=== PATIENT | male | born 1995 | race Caucasian/White ===

== ENCOUNTER 2021-08-23 12:22 | Emergency (ER) | payer MEDICAID ==
[~2021-08-23] VITALS: Ht 160 cm; Wt 78.0 kg
[2021-08-23] MEDS ORDERED: LIDOCAINE HCL/EPINEPHRINE 1%-EPI 1:100,000 20 ML VIAL INFIL ONE (12:45)
[2021-08-23] MEDS ORDERED: TETANUS, DIPHTHERIA, PERTUSSIS VAC/PF 0.5ML (>10YR OLD) IM ONE (12:45)
[2021-08-23] MEDS ORDERED: BACITRACIN ZINC OINT UDPKT TOP ONE (12:45)
[2021-08-23] MEDS ORDERED: HYDROCODONE/ACETAMINOPHEN 5/325MG TABLET PO ONE (13:30)
[2021-08-23] MEDS ORDERED: CEPH500C2 MT (15:10)
[2021-08-23] MEDS ORDERED: BO1 TP (15:10)
[2021-08-23] MEDS ORDERED: IBUP-2029 MT (15:10)
[2021-08-23 15:46] VITALS: BP 125/72
== END 2021-08-23 15:48 | disposition home or self-care (01) ==
LOC: ER 13:08
DX: S71.111A Laceration without foreign body, right thigh, initial encounter (principal); W27.0XXA Contact with workbench tool, initial encounter; Y93.89 Activity, other specified; Y92.89 Other specified places as the place of occurrence of the external cause; Y99.8 Other external cause status
CPT/HCPCS: 12005; 73552; 90471; 90715; 99283; J3490

== ENCOUNTER 2021-09-05 13:33 | Emergency (ER) | payer MEDICAID ==
[~2021-09-05] VITALS: Ht 152.4 cm; Wt 65.0 kg
[~2021-09-05 13:33] MED LIST: BO1 TP; CEPH500C2 MT; IBUP-2029 MT
[2021-09-05 13:40] VITALS: BP 121/80
== END 2021-09-05 14:55 | disposition home or self-care (01) ==
LOC: ER 13:33
DX: Z48.02 Encounter for removal of sutures (principal)
CPT/HCPCS: 99281